=== PATIENT | female | born 1985 | race Caucasian/White ===

== ENCOUNTER 2022-01-28 02:06 | Inpatient (IN) ==
--- NOTE | 2022-01-28 02:38 | History & Physical Report ---
Date of Service January 28, 2022 Assessment & Plan (1) Active labor at term: Plan: 36-year-old -0-0-1 at 40 weeks and 3 days of gestation presenting to labor and delivery in active labor and asking for epidural for pain, Vital signs stable, heart rate reassuring, GBS is negative, Plan to admit, labs, IV fluids and epidural for pain, Anticipate . Admission and Anticipated Discharge Date Admission Date: January 28, 2022 History of Present Illness Primary Care Provider: Raghav Clemons DO Patient is a 36-year-old -0-0-1 at 40 weeks and 3 days of gestation who was originally scheduled for induction of labor for this morning. She started to have contractions around 10:30 PM and they got more painful and regular after 1 AM. No leakage of fluid or vaginal bleeding. She reports good movements. She presented to labor and delivery in a lot of pain and asking for epidural. Her cervix is now 4-5 cm dilated, 80% effaced and head at -2 station. She is being admitted for active labor and will be getting epidural for pain. Her has been complicated by, 1. AMA, first trimester screen test was low risk, 2. Obesity, GBS is negative. Allergies Allergy/AdvReac Type Severity Reaction Status Date / Time No Known Allergies Allergy Unverified 01/24/22 19:28 Home Medications Medication Instructions Recorded Confirmed Type ferrous sulfate 325 mg (65 mg 325 mg PO DAILY 01/24/22 01/24/22 History iron) tablet (iron) vit no.95-ferrous 1 tab PO DAILY 01/24/22 01/24/22 History fumarate 28 mg-folic acid 800 mcg tablet () Patient History Medical History (Updated 01/28/22 @ 02:37 by Nalini Aguilar MD) Gallstones Surgical History Hx of cholecystectomy Family History Other No significant family history Social History Smoking Status: Current every day smoker Cigarettes Per Day: 4-5; Second Hand Exposure: No; Hx Alcohol Use: No Hx Substance Use: No Preferred Language: Latvian Communication Ability: Effective Legal Collector Required: No Beliefs That Will Affect Care: None marital status: Single Current Living Situation: Significant Other Assistive Devices: None OB History Full-term in 2018 [employer] History History of STDs, no history of herpes, chlamydia, gonorrhea Review of Systems as per Subjective / HPI Physical Exam Constitutional: WD/WN, vitals as above well developed, well nourished, + acute distress (Contractions) and + obese Genitourinary: normal external appearance OB Exam Abdomen: + vertex Manual OB Exam: + cervical dilation 5 cm, + cervical effacement 80% and + station -2 OB Exam Monitor Tracing: + external uterine monitor used and + category I Results & Data ([facility]) Vital Signs (Past 12 Hours) Vital Signs Temp Pulse Resp BP 01/28/22 02:22 83 115/58 L 01/28/22 02:16 36.5 C 18
[2022-01-28] MEDS ORDERED: ePHEDrine sulfate 50 MG/ML AMP ONE (02:44)
[2022-01-28] MEDS ORDERED: fentaNYL citrate 100 MCG/2 ML VIAL ONE (02:44)
[2022-01-28] MEDS ORDERED: SODIUM CHLORIDE 0.9% INJ 10 ML VIAL ONE (02:44)
[2022-01-28] MEDS ORDERED: BUPIVACAINE 0.25% 30 ML VIAL ONE (02:44)
[2022-01-28] MEDS ORDERED: fentaNYL 2MCG/ML ROPIVACAINE 1.25MG/ML 100 ML BAG EPI ONE (02:45)
[2022-01-28 02:51] LABS: Hematocrit (blood only) 37.8 % (37-47); Hemoglobin 12.4 g/dL (12.0-16.0); Mean Corpuscular Hemoglobin 29.1 pg (25-34); Mean Corpuscular Hgb Conc 32.8 g/dL (32-36); Mean Corpuscular Volume 88.7 fL (80-100); Mean Platelet Volume 9.8 fL (7.4-10.4); Platelet Count 328 K/uL (130-400); RDW Coefficient of Variation 15.3 % (11.5-14.5); RDW Standard Deviation 49.5 fL (36.4-46.3); Red Blood Count 4.26 M/uL (4.2-5.4); White Blood Count 16.64 K/uL (4.8-10.8)
[2022-01-28] MEDS: LACTATED RINGER'S 1,000 ML IV PRN ×3 (02:53→10:28)
[2022-01-28] MEDS ORDERED: ONDANSETRON INJ 2 MG/ML 2 ML VIAL IV PRN (03:54)
[2022-01-28] MEDS ORDERED: diphenhydrAMINE 50 MG/ML VIAL IV PRN (03:54)
[2022-01-28] MEDS ORDERED: NALOXONE HCL 1 MG in SODIUM CHLORIDE 0.9% 1000ML 1,000 ML IV PRN (03:54)
[2022-01-28] MEDS ORDERED: ePHEDrine sulfate 50 MG/ML AMP IV PRN (03:54)
[2022-01-28] MEDS ORDERED: NALOXONE HCL 0.4 MG/1 ML VIAL/CARP IV PRN (03:54)
[2022-01-28] MEDS ORDERED: PROMETHAZINE HCL 6.25 MG in SODIUM CHLORIDE 0.9% 50 ML IV PRN (03:54)
[2022-01-28] MEDS ORDERED: fentaNYL 2MCG/ML ROPIVACAINE 1.25MG/ML 100 ML BAG EPI PRN (03:54)
[2022-01-28] MEDS ORDERED: NALBUPHINE HCL INJ 10 MG/ML AMP IV PRN (03:54)
--- NOTE | 2022-01-28 03:54 | Anesthesiology Consultation ---
Date of Service January 28, 2022 Assessment & Plan Chart Review Chart Review: Patient NOT seen in Pre Admission Testing and Acceptable Risk for Labor Epidural Consults Requested none ASA ASA2 Proposed Anesthesia Anesthesia Type: Labor Epidural Risk / Benefits Reviewed With: PT / POA / Parent / Guardian, Accepts Plan and Informed Consent Obtained History Height/Weight Height: 4 ft 11 in Weight: 87.6 kg Allergies Allergy/AdvReac Type Severity Reaction Status Date / Time No Known Allergies Allergy Unverified 01/24/22 19:28 Medications Home Medications Medication Instructions Recorded Confirmed Last Taken ferrous sulfate 325 mg (65 mg 325 mg PO DAILY 01/24/22 01/24/22 Unknown iron) tablet (iron) vit no.95-ferrous 1 tab PO DAILY 01/24/22 01/24/22 Unknown fumarate 28 mg-folic acid 800 mcg tablet () Active Medications Generic Name Dose Route Start Last Admin Trade Name Freq PRN Reason Stop Dose Admin Lactated Ringer's 1,000 mls @ 150 mls/hr 01/28/22 02:11 01/28/22 02:53 Lr IV 01/30/22 02:10 999 mls/hr .[id number] PRN Administration L&D Protocol Protocol Past Medical History Medical History (Updated 01/28/22 @ 02:37 by Nalini Aguilar MD) Gallstones Exercise / Class Metabolic Activity II 4-5 Yardwork/Stairs/Walk up hill Past Family History Family History Other No significant family history Past Surgical History Surgical History Hx of cholecystectomy Past Anesthesia History No Hx of Anesthesia Complications and No Family Hx of Anesthesia Complications History of PONV No Hx of PONV and No Hx of Motion Sickness Social History Smoking Status: Current every day smoker tobacco type: cigarettes Smoking cigarettes per day: 4-5 Hx Alcohol Use: No Hx Substance Use: No substance use type: does not use Physical Exam Vital Signs Last Vital Signs Temp 36.5 C 01/28/22 02:16 Pulse 91 H 01/28/22 03:52 Resp 18 01/28/22 02:16 BP 105/64 01/28/22 03:51 Pulse Ox 99 01/28/22 03:52 ENMT Mouth: no dentition abnormality Thyromental Distance: > or= 3.5 Finger Breadths Mallampati Class: II Neck normal visual inspection Respiratory normal respiratory effort Auscultation: lungs clear to auscultation bilaterally Cardiovascular Rate/Rhythm: regular rate and regular rhythm Psychiatric Orientation: alert Testing Laboratory Results 01/28/22 02:32
[2022-01-28] MEDS ORDERED: Nursing to Pharmacy Communication SCH (08:15)
[2022-01-28] MEDS: OXYTOCIN 30 UNITS/500 ML BAG IV PRN ×2 (11:24→12:02)
[2022-01-28] MEDS ORDERED: miSOPROStoL 200 MCG TAB ONE (11:32)
[2022-01-28] MEDS ORDERED: METHYLERGONOVINE MALEATE 0.2 MG/ML AMP ONE (11:32)
[2022-01-28] MEDS ORDERED: OXYTOCIN 30 UNITS/500 ML BAG IV PRN (11:37)
[2022-01-28] MEDS ORDERED: DIPHTHERIA/TETANUS/PERTUSSIS 0.5 ML SYR/VIAL IM ONE (11:37)
[2022-01-28] MEDS ORDERED: bisacodyL 10 MG SUPP PR PRN (11:37)
[2022-01-28] MEDS ORDERED: HYDROCORTISONE ACETATE 25 MG SUPP PR PRN (11:37)
[2022-01-28] MEDS ORDERED: METHYLERGONOVINE MALEATE 0.2 MG/ML AMP IM ONE (11:37)
[2022-01-28] MEDS ORDERED: BENZOCAINE 20% AER SPR 82.5 GM CAN EXT PRN (11:37)
[2022-01-28] MEDS ORDERED: miSOPROStoL 200 MCG TAB PR ONE (11:37)
[2022-01-28] MEDS: IBUPROFEN 600 MG TAB PO PRN ×3 (11:49→20:17)
--- NOTE | 2022-01-28 12:51 | Anesthesia Procedure Note ---
Date of Service January 28, 2022 Anesthesia Post Epidural Note Vital Signs Vital Signs: Temp Pulse Resp BP Pulse Ox 99.1 F 100 H 20 124/59 L 94 01/28/22 11:30 01/28/22 12:45 01/28/22 12:45 01/28/22 12:45 01/28/22 11:37 Pain Intensity Bilateral Abdomen: Pain Intensity: 6 Perineal: Pain Intensity: 5 Notes Mental Status: alert / awake / arousable and participated in evaluation Nausea / Vomiting: adequately controlled Pain: adequately controlled Airway Patency, RR, SpO2: stable & adequate BP & HR: stable & adequate Hydration State: stable & adequate Neuraxial Anesthesia: was administered and sensory block is resolving Anesthetic Complications: no major complications apparent and Pt Satisfied with anesthetic care Epidural: Removed without complications and With tip intact
--- NOTE | 2022-01-28 18:38 | Delivery Summary ---
DATE OF SERVICE: 01/28/2022. The patient delivered a live infant female in right occiput anterior presentation. There was no nuch al cord. was delivered. Terminal meconium was noted. Cord was clamped and cut and handed ov er to the waiting pediatric team. Cord blood and cord gases were obtained. Placenta was spontaneously delivered. Inspection of the placenta shows a grossly normal looking plac enta with 3-vessel cord. Estimated blood loss was 450 mL. Inspection of the perineum showed a second-degree midline laceration , which was repaired with 2-0 Vicryl. Rectal exam post-repair showed good sphincter tone. No suture s are palpated in the rectum. All instruments were removed from the vagina and accounted for x2 including sponges, needles, and ret ractors. The patient and baby are doing well in recovery. Job ID: [id number]
[2022-01-28] MEDS: DOCUSATE SODIUM 100 MG CAP PO SCH (20:17)
[2022-01-28] MEDS: ACETAMINOPHEN 325 MG TAB PO PRN (22:35)
[2022-01-29] MEDS: IBUPROFEN 600 MG TAB PO PRN ×3 (01:10→14:42)
[2022-01-29 06:24] LABS: Hematocrit (blood only) 36.7 % (37-47); Hemoglobin 11.7 g/dL (12.0-16.0); Mean Corpuscular Hemoglobin 28.6 pg (25-34); Mean Corpuscular Hgb Conc 31.9 g/dL (32-36); Mean Corpuscular Volume 89.7 fL (80-100); Mean Platelet Volume 9.9 fL (7.4-10.4); Platelet Count 295 K/uL (130-400); RDW Coefficient of Variation 15.4 % (11.5-14.5); RDW Standard Deviation 50.8 fL (36.4-46.3); Red Blood Count 4.09 M/uL (4.2-5.4); White Blood Count 16.68 K/uL (4.8-10.8)
[2022-01-29] MEDS ORDERED: PRENATAL VITAMIN 1 TAB PO SCH (08:00)
[2022-01-29] MEDS: DOCUSATE SODIUM 100 MG CAP PO SCH (08:35)
--- NOTE | 2022-01-29 11:15 | Obstetrical Progress Note ---
Date of Service January 29, 2022 Assessment & Plan Admission and Anticipated Discharge Date Admission Date: January 28, 2022 Subjective Patient is seen and examined. She feels well, no complaints other than soreness in her bottom. Ambulating without dizziness Voiding without difficulty Tolerating regular diet with out N&V Bleeding is minimal No fever/ chills/ CP/ SOB/ N&V/ Leg pain Breast feeding without problems Lab Results 01/28/22 01/29/22 Range/Units 02:32 05:47 WBC 16.64 H 16.68 H (4.8-10.8) K/uL RBC 4.26 4.09 L (4.2-5.4) M/uL Hgb 12.4 11.7 L (12.0-16.0) g/dL Hct 37.8 36.7 L (37-47) % MCV 88.7 89.7 (80-100) fL MCH 29.1 28.6 (25-34) pg MCHC 32.8 31.9 L (32-36) g/dL RDW Std Deviation 49.5 H 50.8 H (36.4-46.3) fL RDW Coeff of Rose 15.3 H 15.4 H (11.5-14.5) % Plt Count 328 295 (130-400) K/uL MPV 9.8 9.9 (7.4-10.4) fL Vital Signs Temp Pulse Resp BP Pulse Ox 01/29/22 03:35 36.4 C L 77 18 115/68 95 Vital Signs Temp Pulse Pulse Resp BP BP Pulse Ox 01/29/22 03:35 36.4 C L 77 18 115/68 95 01/28/22 20:10 36.7 C 90 18 111/73 01/28/22 15:00 36.7 C 102 H 19 121/75 01/28/22 13:30 36.7 C 20 01/28/22 13:28 107 H 140/62 01/28/22 13:15 102 H 20 146/62 H 01/28/22 13:00 100 H 143/65 H 01/28/22 12:45 100 H 20 124/59 L 01/28/22 12:30 92 H 132/60 01/28/22 12:15 96 H 20 125/59 L 01/28/22 12:00 100 H 20 125/57 L 01/28/22 11:51 20 01/28/22 11:45 99 H 128/61 01/28/22 11:37 92 H 94 01/28/22 11:32 108 H 94 01/28/22 11:30 37.3 C 112 H 20 131/57 L 01/28/22 11:28 111 H 134/75 01/28/22 11:27 113 H 93 01/28/22 11:22 122 H 96 01/28/22 11:17 142 H 93 PE: General: Alert, orientedx3, NAD Abd: soft, NT, fundus firm, below Umbilicus Perineum intact, Lochia rubra minimal Ext; NT, no edema AP: 36 yo s/p , ppd# 1 VSS Afebrile doing well Continue routine care Desires d/c today. WBCC elevated, afebrile Plan to repeat in 12 hours and then plan d/c after dinner. All questions were answered Discussed when to call. Results & Data ([facility]) Vital Signs (Past 12 Hours) Vital Signs Temp Pulse Resp BP Pulse Ox 01/29/22 03:35 36.4 C L 77 18 115/68 95
[2022-01-29] MEDS ORDERED: oxyCODONE/ACETAMINOPHEN 5mg/325mg TAB PO PRN (11:31)
[2022-01-29] MEDS: ACETAMINOPHEN 325 MG TAB PO PRN (11:38)
[2022-01-29 17:09] LABS: Hematocrit (blood only) 34.5 % (37-47); Hemoglobin 11.3 g/dL (12.0-16.0); Mean Corpuscular Hemoglobin 29.8 pg (25-34); Mean Corpuscular Hgb Conc 32.8 g/dL (32-36); Mean Platelet Volume 9.8 fL (7.4-10.4); Platelet Count 320 K/uL (130-400); RDW Coefficient of Variation 15.3 % (11.5-14.5); RDW Standard Deviation 51.2 fL (36.4-46.3); Red Blood Count 3.79 M/uL (4.2-5.4); White Blood Count 13.74 K/uL (4.8-10.8)
[2022-01-29 17:33] LABS: Basophils # (auto) 0.03 K/uL (0-0.2); Basophils % (auto) 0.2 %; Eosinophils # (auto) 0.19 K/uL (0-0.5); Eosinophils % (auto) 1.4 %; Immature Granulocytes # (auto) 0.07 K/uL (0.00-0.02); Immature Granulocytes % (auto) 0.5 %; Lymphocytes # (auto) 2.04 K/uL (1.2-3.4); Lymphocytes % (auto) 14.8 %; Monocytes # (auto) 0.72 K/uL (0.11-0.59); Monocytes % (auto) 5.2 %; Neutrophils # (auto) 10.69 K/uL (1.4-6.5); Neutrophils % (auto) 77.9 %
[2022-01-29] MEDS ORDERED: bisacodyL 5 MG TABEC PO SCH (20:00)
== END 2022-01-29 18:20 | disposition home or self-care (01) | DRG 807 ==
LOC: 4S1 02:06 → 4E2 13:46